=== PATIENT | female | born 1950 | race Caucasian/White ===

== ENCOUNTER 2017-02-15 07:51 | Emergency (ER) | payer BC, MEDICARE ==
[~2017-02-15] VITALS: Ht 154.9 cm; Wt 81.8 kg
[2017-02-15 07:56] VITALS: TEMP 99.1
[2017-02-15 08:21] LABS: BASO % 0.2 % (0.0-2.0); GRAN # 9.6 (1.4-6.5); HEMATOCRIT 45.4 % (37.0-47.0); HEMOGLOBIN 15.7 g/dl (12.5-16.0); LYMPH # 1.7 (1.2-3.4); LYMPH % 13.9 % (20.0-51.0); MEAN CELL VOLUME 90 fl (80.0-100.0); MEAN CORPUSCULAR HEMOGLOBIN 31 pg (27.0-31.0); MEAN CORPUSCULAR HGB CONC 35 g/dl (33.0-37.0); MEAN PLATELET VOLUME 10.7 fl (7.4-10.4); MONO # 0.7 (0.1-0.6); MONO % 5.6 % (1.7-9.3); PLATELET COUNT 259 K/mm3 (130-400); RED BLOOD COUNT 5.03 M/mm3 (4.10-5.30)
[2017-02-15 08:33] LABS: ADJUSTED CALCIUM 9.2 mg/dL (8.4-10.2); ALBUMIN 4.4 gm/dL (3.5-5.0); BILIRUBIN,TOTAL 0.9 mg/dL (0.0-1.0); C-REACTIVE PROTEIN 3.2 mg/dL (0.0-0.9); CALCIUM 9.5 mg/dL (8.4-10.2); CREATININE, serum 0.86 mg/dL (0.52-1.25); POTASSIUM 4.3 mmol/L (3.4-5.0); TOTAL PROTEIN 7.3 gm/dL (6.4-8.2)
[2017-02-15] MEDS ORDERED: BETASERON0.3 M2 (08:34)
[2017-02-15] MEDS ORDERED: SYNTHROID0.05 MG/TA PO (08:35)
[2017-02-15] MEDS ORDERED: LEXAPRO 10MG10 MG PO (08:36)
[2017-02-15] MEDS ORDERED: ZOCOR 40MG40 MG PO (08:36)
[2017-02-15] MEDS ORDERED: TRICOR145 MG PO (08:36)
[2017-02-15] MEDS ORDERED: VITAMIND3 5000 (08:37)
[2017-02-15] MEDS ORDERED: MULTI VITAMINS1 TAB PO (08:37)
[2017-02-15] MEDS ORDERED: NORCO 325 MG-51 TAB PO (10:11)
[2017-02-15] MEDS ORDERED: LEVAQUIN 750MG750 M1 PO (10:37)
[2017-02-15] MEDS ORDERED: FLAGYL500 MG PO (10:37)
[2017-02-15] MEDS ORDERED: ZOFRAN ODT4 MG PO (10:38)
[2017-02-15 10:56] VITALS: BP 124/64; PULSE 85
== END 2017-02-15 11:01 | disposition home or self-care (01) ==
LOC: COL.ER 07:51
PROVIDERS: Emergency Medicine
DX: K52.9 Noninfective gastroenteritis and colitis, unspecified (principal); G35 Multiple sclerosis; Z98.51 Tubal ligation status
CPT/HCPCS: J2405; J2550; J7030; J7050; Q9967